=== PATIENT | female | born 1945 | race Caucasian/White ===

== ENCOUNTER 2024-09-20 20:30 | Inpatient (IN) | payer OTHER ==
[~2024-09-20] VITALS: Ht 152.4 cm; Wt 58.1 kg
[2024-09-20 21:15] LABS: Basophils # (auto) 0.1 10 ^3/uL (0-0.2); Eosinophils # (auto) 0 10 ^3/uL (0-0.8); Hemoglobin 17.7 g/dL (12.2-16.2); Lymphocytes # (auto) 1.2 10 ^3/uL (0.4-5.4); Potassium 4.5 mmol/L (3.5-5.1); Sodium 137 mmol/L (136-145)
[2024-09-20 21:16] LABS: Basophils % (auto) 0.4 % (0.0-2.0); Calcium 10.9 mg/dL (8.7-10.4); Carbon Dioxide 28 mmol/L (20-31); Eosinophils % (auto) 0.1 % (0.0-7.0); Hematocrit 52.4 % (36.0-46.0); Lymphocytes % (auto) 7.3 % (10.0-50.0); Mean Corpuscular Hemoglobin 30.8 pg (28.0-32.0); Mean Corpuscular Hgb Conc. 33.8 g/dL (32.0-36.0); Mean Corpuscular Volume 91.1 fL (80.0-100.0); Monocytes # (auto) 1.8 10 ^3/uL (0-1.3); Monocytes % (auto) 10.7 % (0.0-12.0); Neutrophils # (auto) 13.7 10 ^3/uL (1.6-8.6); Neutrophils % (auto) 81.5 % (37.0-80.0); Platelet Count (auto) 249 10^3/uL (140-450); Red Blood Cells 5.76 10^6/uL (4.0-5.20); Red Cell Distribution Width 14.1 % (11.8-14.3); White Blood Cell 16.8 10^3/uL (4.4-10.8)
[2024-09-20 21:21] LABS: BUN/Creatinine Ratio 17.5 (10.0-20.0); Blood Urea Nitrogen 17 mg/dL (9-23); Glucose 110 mg/dL (74-106)
[2024-09-20 21:46] LABS: Anion Gap 10 (5-15); Chloride 99 mmol/L (98-107)
[2024-09-20 21:51] VITALS: PULSE 83; RESP 14; O2SAT 96
[2024-09-20] MEDS: cloNIDine HCL 0.1 MG TAB PO ONE ×2 (22:02→22:47)
[2024-09-20] MEDS ORDERED: DOCUSATE SOD 100 MG CAP PO PRN (22:15)
[2024-09-20] MEDS ORDERED: HYDROcodone-ACET 5/325MG TAB PO PRN (22:15)
[2024-09-20] MEDS ORDERED: hydrALAZINE HCL 20 MG/ML VL IV PRN (22:15)
[2024-09-20] MEDS ORDERED: ONDANSETRON HCL 4 MG/2 ML VIAL IV PRN (22:15)
[2024-09-20] MEDS: SODIUM CHLORIDE 0.9% 1,000 ML IV SCH (22:15)
[2024-09-20] MEDS ORDERED: ACETAMINOPHEN 325 MG TAB PO PRN (22:15)
[2024-09-21] VITALS (9 sets, daily range): BP systolic 98–159; BP diastolic 57–90; PULSE 59–83; RESP 14–18; TEMP 97.6–99.3; O2SAT 94–97
[2024-09-21] MEDS ORDERED: NITROGLYCERIN 0.4 MG SL TAB SL PRN
[2024-09-21] MEDS ORDERED: MORPHINE SULFATE INJ 2 MG/ml SYRG IV PRN
[2024-09-21] MEDS: ASPirin-EC 325mg tab PO ONE (01:23)
[2024-09-21] MEDS: cefTRIAXone 1GM/50ML D5W 50 ML IV ONE (01:35)
[2024-09-21] MEDS ORDERED: METO25TA5 PO (03:39)
[2024-09-21] MEDS ORDERED: ROSU5TAB5 PO ×2 (03:39→03:40)
[2024-09-21] MEDS ORDERED: ALPR0.25 PO (03:39)
[2024-09-21 03:40] LABS: Basophils # (auto) 0.1 10 ^3/uL (0-0.2); Basophils % (auto) 0.5 % (0.0-2.0); Eosinophils # (auto) 0 10 ^3/uL (0-0.8); Eosinophils % (auto) 0.1 % (0.0-7.0); Hematocrit 46.4 % (36.0-46.0); Hemoglobin 15.3 g/dL (12.2-16.2); Lymphocytes # (auto) 1.5 10 ^3/uL (0.4-5.4); Lymphocytes % (auto) 10.8 % (10.0-50.0); Mean Corpuscular Hemoglobin 30.2 pg (28.0-32.0); Mean Corpuscular Volume 91.6 fL (80.0-100.0); Monocytes # (auto) 1.4 10 ^3/uL (0-1.3); Monocytes % (auto) 10.2 % (0.0-12.0); Neutrophils % (auto) 78.4 % (37.0-80.0); Nucleated Red Blood Cells % 0.1 %; Platelet Count (auto) 214 10^3/uL (140-450); Red Blood Cells 5.06 10^6/uL (4.0-5.20)
[2024-09-21 03:59] LABS: Alanine Aminotransferase 17 U/L (7-40); Alkaline Phosphatase 55 U/L (46-116); Anion Gap 5 (5-15); Aspartate Aminotransferase 21 U/L (13-40); BUN/Creatinine Ratio 16.5 (10.0-20.0); Blood Urea Nitrogen 14 mg/dL (9-23); Calcium 9.5 mg/dL (8.7-10.4); Carbon Dioxide 28 mmol/L (20-31); Chloride 103 mmol/L (98-107); Glucose 100 mg/dL (74-106); Potassium 4.3 mmol/L (3.5-5.1); Sodium 136 mmol/L (136-145)
[2024-09-21 04:00] LABS: Bilirubin, Total 0.7 mg/dL (0.2-1.0); Total Protein 6.1 g/dL (5.7-8.2)
[2024-09-21 04:06] LABS: Urine Bacteria None Seen /hpf (None Seen)
[2024-09-21 04:17] LABS: Urine Blood TRACE /uL (Negative); Urine Clarity Clear (Clear); Urine Color Yellow (Yellow); Urine Hyaline Cast MOD /lpf (0 - 2); Urine Mucus FEW (None Seen); Urine Protein, UAD 1+ (Negative); Urine Specific Gravity 1.022 (1.001-1.035); Urine Urobilinogen Normal (Negative); Urine WBC 63 /hpf (0 - 5)
[2024-09-21] MEDS: ENOXAPARIN SOD 30 MG/0.3 ML SYRINGE SC ONE (11:15)
[2024-09-21] MEDS: METOPROLOL SUCCINATE XL 50 MG TAB PO ONE (11:15)
[2024-09-21] MEDS: ALPRAZolam 0.25 MG TAB PO PRN (18:31)
[2024-09-22] MEDS ORDERED: cefTRIAXone 1GM/50ML D5W 50 ML IV SCH (01:00)
[2024-09-22] MEDS ORDERED: ENOXAPARIN SOD 30 MG/0.3 ML SYRINGE SC SCH (10:00)
[2024-09-22] MEDS ORDERED: METOPROLOL SUCCINATE XL 50 MG TAB PO SCH (10:00)
== END 2024-09-21 21:20 | disposition short-term general hospital (02) | DRG 391 ==
LOC: EDBD 20:30 → ER 20:30 → TELE 23:58 → TELE-WESTW 09-21 03:00
PROVIDERS: ADMIT Nurse Practitioner Family; ATTEND Student in an Organized Health Care Education/Training Program
DX: A08.4 Viral intestinal infection, unspecified (principal); I21.A1 Myocardial infarction type 2; N39.0 Urinary tract infection, site not specified; I16.0 Hypertensive urgency; E86.9 Volume depletion, unspecified; E78.5 Hyperlipidemia, unspecified; F17.210 Nicotine dependence, cigarettes, uncomplicated; I49.1 Atrial premature depolarization; R82.71 Bacteriuria; Z90.2 Acquired absence of lung [part of]; Z85.118 Personal history of other malignant neoplasm of bronchus and lung; Z82.49 Family history of ischemic heart disease and other diseases of the circulatory system; Z82.3 Family history of stroke; Z91.199 Patient's noncompliance with other medical treatment and regimen due to unspecified reason
CPT/HCPCS: 36415; 70450; 80048; 80053; 80061; 81001; 83036; 83735; 83880; 84443; 84484; 85025; 87040; 93005; G0378